=== PATIENT | female | born 1950 | race American Indian/Alaskan Native ===

== ENCOUNTER 2019-04-09 04:27 | Emergency (ER) | payer MEDICARE ==
[2019-04-09 04:50] VITALS: BP 160/69
[2019-04-09 05:20] LABS: Hematocrit 28.5 % (30.3-42.9); Hemoglobin 9.9 gm/dl (10.1-14.3); Mean Corpuscular HGB Conc 35 % (30-34); Mean Corpuscular Volume 89 fl (79-97); Platelet Count 366 K/mm3 (140-440); Red Blood Count 3.21 M/mm3 (3.65-5.03); Red Cell Distribution Width 16.9 % (13.2-15.2)
[2019-04-09 05:38] LABS: Calcium 9.4 mg/dL (8.4-10.2)
[2019-04-09] MEDS ORDERED: NACL 0.9% 1000 ML 1,000 ML IV ONE (06:11)
[2019-04-09] MEDS ORDERED: ZOFRAN IV ONE (06:11)
[2019-04-09 07:23] LABS: Bilirubin,Urine NEG (Negative); Blood,Urine NEG (Negative); Color,Urine Yellow (Yellow); Mucus,Urine FEW /HPF; Protein,Urine <15 mg/dL mg/dL (Negative); Urobilinogen,Urine < 2.0 mg/dL (<2.0)
--- NOTE | 2019-04-09 07:35 | Emergency Department Report ---
Vomiting/Diarrhea - HPI Chief Complaint: Nausea/Vomiting/Diarrhea Stated Complaint: VOMITING Duration: 1 Day Severity: mild Nausea/Vomiting Severity: Mild Diarrhea Severity: None Pain Severity: None Symptoms: Yes Able to Tolerate Fluids, No Watery Diarrhea, No Bloody diarrhea, No Fever, No Recent Unusual Foods, No Recent Untreated Water, No Recent use of Antibiotics, No Family w/ Similar Symptoms, No Contacts w/ Similar Symptoms, No Rash, No Hematuria, No Recent URI Symptoms Other History: This is a 69-year-old female who presents to the emergency room with nausea and vomiting since yesterday. 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 Symptoms started around 1531 yesterday. Reportedly eating dinner when she arrived home with increased nausea and vomiting. Past medical history of hypertension. She is seeing a keeper helper or leukocytosis. She has a schedule bone marrow biopsy next month. She denies pain, diarrhea, chills, cough, fever, corzya, or myalgia. ED Review of Systems ROS: Stated complaint: VOMITING Other details as noted in HPI Constitutional: denies: chills, fever ENT: denies: ear pain, throat pain Respiratory: denies: cough, shortness of breath, wheezing Cardiovascular: denies: chest pain, palpitations Gastrointestinal: nausea, vomiting. denies: abdominal pain, diarrhea Genitourinary: denies: urgency, dysuria, discharge Neurological: denies: headache, weakness, paresthesias Psychiatric: denies: anxiety, depression ED Past Medical Hx - Past Medical History Previous Medical History?: Yes Hx Hypertension: Yes Additional medical history: Blood Disorder (Increased WBC) - Surgical History Past Surgical History?: No - Social History Smoking Status: Never Smoker Substance Use Type: None - Medications Home Medications: Home Medications Medication Instructions Recorded Confirmed Last Taken Type Dicyclomine [Bentyl] 10 mg PO QID #15 capsule 08/17/18 Unknown Rx Famotidine [Pepcid] 40 mg PO QHS #10 tablet 08/17/18 Unknown Rx Ondansetron [Zofran Odt] 4 mg PO Q8HR PRN #10 tab.rapdis 08/17/18 Unknown Rx Famotidine [Pepcid] 40 mg PO DAILY #30 tablet 04/09/19 Unknown Rx Ondansetron [Zofran Odt] 4 mg PO Q8HR PRN #15 tab.rapdis 04/09/19 Unknown Rx Vomiting Diarrhea Exam - Exam General: Vital signs noted. No distress. Alert and acting appropriately. HEENT: Yes Pharyngeal Erythema (erythematous posterior pharynx, uvula midline), Yes Moist Mucous Membranes, No Pharyngeal Exudates, No Rhinorrhea, No Conjuctival Injection, No Frontal Tenderness, No Maxillary Tenderness Neck: No Adenopathy, No Rigidity Lungs: Yes Clear Lung Sounds, Yes Good Air Exchange, No Wheezes, No Stridor, No Cough, No Nasal Flaring, No Retractions, No Use of Accessory Muscles Heart exam: Regular: Yes, Murmur: No, Tachycardia: No Abdomen: Tenderness: No, Peritoneal Signs: No, Distention: No, Hyperactive Bowel sounds: No Skin exam: Rash: No, Edema: No, Normal turgor: Yes Neurologic: Alert and oriented, no deficits. Musculoskeletal: Unremarkable. ED Course Vital Signs 04/09/19 04:47 Temperature 98.2 F Pulse Rate 73 Respiratory 18 Rate Blood Pressure 160/69 O2 Sat by Pulse 100 Oximetry ED Medical Decision Making - Lab Data Result diagrams: 04/09/19 04:58 04/09/19 04:58 Lab Results 04/09/19 04/09/19 04/09/19 Range/Units 04:58 04:58 04:58 WBC 17.2 H (4.5-11.0) K/mm3 RBC 3.21 L (3.65-5.03) M/mm3 Hgb 9.9 L (10.1-14.3) gm/dl Hct 28.5 L (30.3-42.9) % MCV 89 (79-97) fl MCH 31 (28-32) pg MCHC 35 H (30-34) % RDW 16.9 H (13.2-15.2) % Plt Count 366 (140-440) K/mm3 WBC Morphology TNR Sodium 143 (137-145) mmol/L Potassium 3.9 (3.6-5.0) mmol/L Chloride 104.3 (98-107) mmol/L Carbon Dioxide 28 (22-30) mmol/L Anion Gap 15 mmol/L BUN 13 (7-17) mg/dL Creatinine 1.1 (0.7-1.2) mg/dL Estimated GFR 60 ml/min BUN/Creatinine Ratio 12 % Glucose 103 H (65-100) mg/dL Calcium 9.4 (8.4-10.2) mg/dL Urine Color (Yellow) Urine Turbidity (Clear) Urine pH (5.0-7.0) Ur Specific [place] (1.003-1.030) Urine Protein (Negative) mg/dL Urine Glucose (UA) (Negative) mg/dL Urine Ketones (Negative) mg/dL Urine Blood (Negative) Urine Nitrite (Negative) Urine Bilirubin (Negative) Urine Urobilinogen (<2.0) mg/dL Ur Leukocyte Esterase (Negative) Urine WBC (Auto) (0.0-6.0) /HPF Urine RBC (Auto) (0.0-6.0) /HPF U Epithel Cells (Auto) (0-13.0) /HPF Urine Mucus /HPF 04/09/19 Range/Units 06:38 WBC (4.5-11.0) K/mm3 RBC (3.65-5.03) M/mm3 Hgb (10.1-14.3) gm/dl Hct (30.3-42.9) % MCV (79-97) fl MCH (28-32) pg MCHC (30-34) % RDW (13.2-15.2) % Plt Count (140-440) K/mm3 WBC Morphology Sodium (137-145) mmol/L Potassium (3.6-5.0) mmol/L Chloride (98-107) mmol/L Carbon Dioxide (22-30) mmol/L Anion Gap mmol/L BUN (7-17) mg/dL Creatinine (0.7-1.2) mg/dL Estimated GFR ml/min BUN/Creatinine Ratio % Glucose (65-100) mg/dL Calcium (8.4-10.2) mg/dL Urine Color Yellow (Yellow) Urine Turbidity Clear (Clear) Urine pH 7.0 (5.0-7.0) Ur Specific [place] 1.013 (1.003-1.030) Urine Protein <15 mg/dl (Negative) mg/dL Urine Glucose (UA) Neg (Negative) mg/dL Urine Ketones Neg (Negative) mg/dL Urine Blood Neg (Negative) Urine Nitrite Neg (Negative) Urine Bilirubin Neg (Negative) Urine Urobilinogen < 2.0 (<2.0) mg/dL Ur Leukocyte Esterase Neg (Negative) Urine WBC (Auto) 2.0 (0.0-6.0) /HPF Urine RBC (Auto) 2.0 (0.0-6.0) /HPF U Epithel Cells (Auto) 1.0 (0-13.0) /HPF Urine Mucus Few /HPF - Radiology Data Radiology results: report reviewed CT ABDOMEN AND PELVIS WITH CONTRAST HISTORY: generalized abd pain, N/V. COMPARISON: None. TECHNIQUE: CT images of the abdomen and pelvis were obtained following administration of intravenous contrast. All CT scans at this location are performed using CT dose reduction for ALARA by means of automated exposure control. CONTRAST: 100 ml of intravenous contrast administered. FINDINGS: Lungs/bones: There is mild bibasilar atelectasis with otherwise clear lung bases. Degenerative changes are present in the spine and pelvis with no acute osseous abnormality identified. There is a hemangioma within the L1 vertebral body. Abdomen/pelvis: The liver is mildly enlarged with no focal mass identified. The gallbladder, pancreas, adrenals, and proximal GI tract appear unremarkable except for a small hiatal hernia. The spleen is mildly enlarged. There is a simple cyst in the left kidney. Urinary bladder and reproductive organs are unremarkable with no pelvic free fluid. There is no acute colonic abnormality identified. The appendix and terminal ileum appear normal. IMPRESSION: 1. No acute abnormality identified. 2. Incidental findings as above. - Medical Decision Making Patient is stable and was examined by this provider. Vitals stable. Obtained BMP, CBC, & UA. Parents leukocytosis which patient has already aware of and stand hematology. All other labs unremarkable. CT of abdomen obtained and dictated by radiologist with the following findings: 1. No acute abnormality identified. 2. Incidental findings as above. Given zofran odt 4 mg po once and normal saline 1 L bolus in ER. Patient reports feeling better. Plan to start zofran for gastritis. Discussed plan with patient and agreed to plan. No further questions noted by the patient. Discharged home in stable condition. Follow up with PCP in 2-3 days. Critical care attestation.: If time is entered above; I have spent that time in minutes in the direct care of this critically ill patient, excluding procedure time. ED Disposition Clinical Impression: Nausea and vomiting in adult, Gastroenteritis, H/O leukocytosis Disposition: - TO HOME OR SELFCARE Is pt being admited?: No Does the pt Need Aspirin: No Condition: Stable Instructions: Gastroenteritis (ED) Additional Instructions: Frequent hand washing is important to reduce spread. Prompt disinfection of contaminated surfaces with household chlorine bleach- based metal numerical control programmer and washing of soiled clothing and bedding should be advised. If food or water is thought to be contaminated, it should be avoided. Increase fluid intake. Drinks high in sugars such as carbonated soft drinks, fruit juice, and highly sugared liquids should be avoided. Prescriptions: Famotidine [Pepcid] 40 mg PO DAILY #30 tablet Ondansetron [Zofran Odt] 4 mg PO Q8HR PRN #15 tab.rapdis PRN Reason: Nausea And Vomiting Referrals: JAYCEE BERMUDEZ MD [Staff Physician] - 3-5 Days [facility], [facility] [Provider Group] - 3-5 Days [facility] [Provider Group] - 3-5 Days Forms: Work/School Release Form(ED) Time of Disposition: 08:30
--- NOTE | 2019-04-09 08:04 | Cat Scan Report ---
CT ABDOMEN AND PELVIS WITH CONTRAST HISTORY: generalized abd pain, N/V. COMPARISON: None. TECHNIQUE: CT images of the abdomen and pelvis were obtained following administration of intravenous contrast. All CT scans at this location are performed using CT dose reduction for ALARA by means of automated exposure control. CONTRAST: 100 ml of intravenous contrast administered. FINDINGS: Lungs/bones: There is mild bibasilar atelectasis with otherwise clear lung bases. Degenerative belle es are present in the spine and pelvis with no acute osseous abnormality identified. There is a heman gioma within the L1 vertebral body. Abdomen/pelvis: The liver is mildly enlarged with no focal mass identified. The gallbladder, pancrea s, adrenals, and proximal GI tract appear unremarkable except for a small hiatal hernia. The spleen i s mildly enlarged. There is a simple cyst in the left kidney. Urinary bladder and reproductive organs are unremarkable with no pelvic free fluid. There is no acute colonic abnormality identified. The appendix and terminal ileum appear normal. IMPRESSION: 1. No acute abnormality identified. 2. Incidental findings as above. Signer Name: Robbie Vargas MD Signed: 04/09/2019 8:00 AM Workstation Name: [id number]
[2019-04-09 11:55] LABS: Promyelocytes # (Manual) 0.2 K/mm3; Total Cells Counted 100
[2019-04-09 11:56] LABS: Anisocytosis RARE; Poikilocytosis Few
[2019-04-09 11:58] LABS: Tear Drop Cells 1+
[2019-04-09 11:59] LABS: Platelet Estimate Consistent w Auto
== END 2019-04-09 08:35 | disposition home or self-care (01) ==
LOC: ED 04:27
DX: K52.9 Noninfective gastroenteritis and colitis, unspecified (principal); I10 Essential (primary) hypertension; Z79.899 Other long term (current) drug therapy
CPT/HCPCS: 36415; 74177; 80048; 81001; 85007; 85025; 96361; 96374; 99284; J2405; J7030; Q9967